=== PATIENT | female | born 1975 | race Caucasian/White ===

== ENCOUNTER 2018-09-20 05:26 | Inpatient (IN) | payer BC ==
[2018-09-20] MEDS: BUPIVACAINE 0.5% (SDV) 30 ML INJ (07:32)
[2018-09-20] MEDS: THROMBIN 5000 UNIT VIAL (07:33)
[2018-09-20] MEDS: HEMOSTATIC MATRIX/ THROMBIN 1 EA SYG ZFS (07:33)
[2018-09-20] MEDS: LIDOCAINE 1%/EPI 30 ML INJ (07:33)
[2018-09-20] MEDS: GELATIN SIZE 100 SPONGE (07:33)
[2018-09-20] MEDS: POLYMYXIN/BACITRACIN 1L IRRIG (07:33)
[2018-09-20] MEDS ORDERED: MIDAZOLAM 1 MG/ML 2 ML INJ (07:53)
[2018-09-20] MEDS ORDERED: FENTAnyl 50 MCG/ML VIAL ×2 (07:53→12:43)
[2018-09-20] MEDS ORDERED: LIDOCAINE 100 MG SYRINGE (08:41)
[2018-09-20] MEDS ORDERED: ROCURONIUM 50 MG INJ (08:41)
[2018-09-20] MEDS ORDERED: PROPOFOL 20 ML (08:41)
[2018-09-20] MEDS ORDERED: CEFAZOLIN 1 GM INJ (08:41)
[2018-09-20] MEDS ORDERED: SUCCINYLCHOLINE CHLORIDE 100 MG/5 ML SYG IV (08:41)
[2018-09-20] MEDS ORDERED: DEXAMETHASONE 4 MG/ML 5 ML INJ (08:42)
[2018-09-20] MEDS ORDERED: METOCLOPRAMIDE 10 MG INJ IV (14:30)
[2018-09-20] MEDS ORDERED: FENTAnyl 50 MCG/ML VIAL IV ×3 (14:30)
[2018-09-20] MEDS ORDERED: HYDROmorphONE 1 MG/5 ML IV SYRINGE IV (14:30)
[2018-09-20] MEDS ORDERED: DIPHENHYDRAMINE 50 MG INJ IV (14:30)
[2018-09-20] MEDS ORDERED: ALBUTEROL 0.083% (NEB) 2.5 MG/3 ML AMP HHN (14:30)
[2018-09-20] MEDS ORDERED: OXYCODONE/ACETAMINOPHEN (5/325) TAB PO (14:30)
[2018-09-20] MEDS: MEPERIDINE 25 MG INJ IV (14:36)
[2018-09-20] MEDS: ONDANSETRON 4 MG INJ IV (14:37)
[2018-09-20] MEDS: LACTATED RINGER'S 1,000 ML IV (14:47)
[2018-09-20] MEDS: HYDROmorphONE 1 MG/5 ML IV SYRINGE IV ×2 (14:49→15:05)
[2018-09-20] MEDS ORDERED: BISACODYL 10 MG SUPP PR (15:00)
[2018-09-20] MEDS ORDERED: ONDANSETRON 4 MG INJ IV (15:00)
[2018-09-20] MEDS ORDERED: NALOXONE (0.4 MG/ML) INJ IV (15:00)
[2018-09-20] MEDS: CEFAZOLIN 1 GM/50 ML (PMX) 50 ML IVPB ×2 (15:58→23:17)
[2018-09-20] MEDS: 1/2 NS + KCL 20 MEQ 1,000 ML IV (16:37)
[2018-09-20] MEDS: HYDROmorphONE 0.5 MG/0.5 ML SYG IV ×4 (17:02→23:16)
[2018-09-20] MEDS: DOCUSATE SODIUM 100 MG CAP PO (20:25)
[2018-09-20] MEDS: GABAPENTIN 400 MG CAP PO (20:26)
[2018-09-20] MEDS: CYCLOBENZAPRINE 10 MG TAB PO (22:01)
[2018-09-21] MEDS: HYDROmorphONE 1 MG/ML SYG IV (00:03)
[2018-09-21] MEDS: traMADol 50 MG TAB PO ×4 (02:14→16:07)
[2018-09-21] MEDS: 1/2 NS + KCL 20 MEQ 1,000 ML IV ×2 (03:10→13:00)
[2018-09-21] MEDS: HYDROmorphONE 0.5 MG/0.5 ML SYG IV ×3 (03:31→07:58)
[2018-09-21] MEDS ORDERED: PANTOPRAZOLE 40 MG INJ IV (06:00)
[2018-09-21] MEDS: PANTOPRAZOLE (EC) 40 MG TAB PO (06:02)
[2018-09-21] MEDS: CEFAZOLIN 1 GM/50 ML (PMX) 50 ML IVPB (06:02)
[2018-09-21] MEDS: GABAPENTIN 400 MG CAP PO ×2 (07:49→13:07)
[2018-09-21] MEDS: CYCLOBENZAPRINE 10 MG TAB PO ×2 (07:50→18:27)
[2018-09-21] MEDS: DOCUSATE SODIUM 100 MG CAP PO (07:50)
[2018-09-21] MEDS: HYDROCODONE/APAP (5/325) TAB PO ×3 (09:49→17:26)
== END 2018-09-21 20:15 | disposition home or self-care (01) | DRG 473 ==
LOC: REC 05:26 → MS1 16:17
PROC: 0RG20A0 Fusion of 2 or more Cervical Vertebral Joints with Interbody Fusion Device, Anterior Approach, Anterior Column, Open Approach (ICD-10-PCS; principal; 2018-09-20 07:30)
PROC: 0RT30ZZ Resection of Cervical Vertebral Disc, Open Approach (ICD-10-PCS; 2018-09-20 07:30)
PROC: 01N10ZZ Release Cervical Nerve, Open Approach (ICD-10-PCS; 2018-09-20 07:30)
PROC: 4A11X4G Monitoring of Peripheral Nervous Electrical Activity, Intraoperative, External Approach (ICD-10-PCS; 2018-09-20 07:30)
DX: M50.321 Other cervical disc degeneration at C4-C5 level (principal); M48.02 Spinal stenosis, cervical region; M79.7 Fibromyalgia; Z85.528 Personal history of other malignant neoplasm of kidney
CPT/HCPCS: 72050; 87086; 97161